=== PATIENT | female | born 1990 | race Caucasian/White ===

== ENCOUNTER 2022-01-11 16:50 | Emergency (ER) | payer OTHER ==
[2022-01-11 18:21] LABS: HEMOGLOBIN 14.3 gm/dl (12.3-15.3); RED BLOOD COUNT 5.06 M/UL (4.00-5.10); WHITE BLOOD COUNT 8.2 K/UL (4.5-11.0)
[2022-01-11 18:37] LABS: BUN/CREATININE RATIO 17 (0-10)
[2022-01-11] MEDS ORDERED: VISTARIL25 MG PO (22:16)
== END 2022-01-11 22:35 ==
LOC: ER1 16:50
PROVIDERS: Family Medicine
DX: F19.10 Other psychoactive substance abuse, uncomplicated (principal); F11.23 Opioid dependence with withdrawal; R52 Pain, unspecified; R61 Generalized hyperhidrosis
CPT/HCPCS: 80053; 80307; 81001; 84703; 85025; 99284; Q0177